=== PATIENT | male | born 1990 | race Caucasian/White ===

== ENCOUNTER 2021-11-26 22:21 | Emergency (ER) | payer BC ==
[2021-11-27] MEDS ORDERED: PROVENTIL HFA6.7 GM INH (00:27)
[2021-11-27] MEDS ORDERED: BENZONATATE200 MG PO (00:27)
== END 2021-11-27 02:03 | disposition home or self-care (01) ==
LOC: ER1 22:21
DX: U07.1 COVID-19 (principal); Z23 Encounter for immunization; J40 Bronchitis, not specified as acute or chronic; K21.9 Gastro-esophageal reflux disease without esophagitis; I10 Essential (primary) hypertension; Z79.899 Other long term (current) drug therapy; Z87.09 Personal history of other diseases of the respiratory system
CPT/HCPCS: 0240U; 71045; 99283; M0222